=== PATIENT | female | born 1990 | race African-American/Black ===

== ENCOUNTER 2022-04-05 21:15 | Emergency (ER) | payer SELFPAY ==
[2022-04-05] MEDS ORDERED: Ketorolac 60 MG/2 ML SDV IM ONE (21:52)
[2022-04-05 23:07] LABS: BLOOD UREA NITROGEN,BUN 14 mg/dL (7.0-18.0); CARBON DIOXIDE,CO2 26.5 mmol/L (21.0-32.0); CHLORIDE,CL 99 mmol/L (98-107); GLUCOSE RANDOM 296 mg/dL (74-106); LIPASE 70 U/L (73-393); POTASSIUM,K 3.9 mmol/L (3.5-5.1); SODIUM,NA 134 mmol/L (136-145)
[2022-04-05] MEDS ORDERED: traMADol 50 MG Tab PO ONE (23:57)
== END 2022-04-06 00:08 | disposition home or self-care (01) ==
LOC: MW.ED 21:15
DX: N92.1 Excessive and frequent menstruation with irregular cycle (principal); I10 Essential (primary) hypertension; F17.210 Nicotine dependence, cigarettes, uncomplicated
CPT/HCPCS: 36415; 80053; 81001; 81025; 83690; 85025; 96372; 99283; 99284; A9270-GY; J1885

== ENCOUNTER 2023-01-04 21:28 | Emergency (ER) | payer OTHER ==
[2023-01-04] MEDS ORDERED: Acetaminophen 500 MG Tab PO ONE (22:53)
== END 2023-01-05 00:07 | disposition home or self-care (01) ==
LOC: MW.ED 21:28
DX: S06.0X0A Concussion without loss of consciousness, initial encounter (principal); S16.1XXA Strain of muscle, fascia and tendon at neck level, initial encounter; V49.40XA Driver injured in collision with unspecified motor vehicles in traffic accident, initial encounter; Y92.410 Unspecified street and highway as the place of occurrence of the external cause
CPT/HCPCS: 99283; A9270

== ENCOUNTER 2023-01-09 15:38 | Emergency (ER) | payer OTHER ==
[2023-01-09] MEDS ORDERED: Ibuprofen 400 MG Tab PO ONE (17:04)
[2023-01-09] MEDS ORDERED: Acetaminophen 325 MG Tab PO ONE (17:04)
[2023-01-09] MEDS ORDERED: Lidocaine 5% 700 MG Patch TOP ONE (17:05)
== END 2023-01-09 18:07 | disposition home or self-care (01) ==
LOC: MW.ED 15:38
DX: M25.519 Pain in unspecified shoulder (principal); R51.9 Headache, unspecified; M54.2 Cervicalgia
CPT/HCPCS: 99283; A9270

== ENCOUNTER 2023-04-11 02:08 | Emergency (ER) | payer OTHER ==
[2023-04-11] MEDS ORDERED: Sodium Chloride 0.9% 1,000 ML IV ONE (02:10)
[2023-04-11] MEDS ORDERED: Ondansetron 4 MG/2 ML SDV IVPUSH ONE (02:10)
[2023-04-11 02:31] LABS: BASOPHILS PERCENT AUTO 0.2 % (0.0-1.5); EOSINOPHILS ABSOLUTE AUTO 0.4 K/uL (0.0-0.7); EOSINOPHILS PERCENT AUTO 4.6 % (0.0-7.0); HEMATOCRIT 37.4 % (36.0-46.0); HEMOGLOBIN 12.5 g/dL (12.0-16.0); LYMPHOCYTES ABSOLUTE AUTO 3.3 K/uL (0.6-2.4); LYMPHOCYTES PERCENT AUTO 38.9 % (16.0-40.0); MEAN CORPUSCULAR HEMOGLOBIN 26.8 pg (27.0-32.0); MEAN CORPUSCULAR HGB CONC 33.4 g/dL (31.0-37.0); MEAN CORPUSCULAR VOLUME 80.1 fL (80.0-98.0); MONOCYTES ABSOLUTE AUTO 0.6 K/uL (0.0-0.8); MONOCYTES PERCENT AUTO 6.5 % (0.0-15.0); NEUTROPHILS ABSOLUTE AUTO 4.2 K/uL (1.4-5.7); NEUTROPHILS PERCENT AUTO 49.8 % (48.0-80.0); NRBC ABSOLUTE 0 K/uL; PLATELET COUNT,PLT 332 K/uL (150-400); RED BLOOD CELL COUNT 4.67 M/uL (4.30-5.90); WHITE BLOOD CELL COUNT,WBC 8.43 K/uL (4.0-11.0)
[2023-04-11 02:36] LABS: BILIRUBIN,URINE NEGATIVE (NEGATIVE); COLOR,URINE YELLOW; GLUCOSE,URINE 500 mg/dL (NEGATIVE); KETONES,URINE TRACE mg/dL (NEGATIVE); LEUKOCYTE ESTERASE,URINE TRACE (NEGATIVE); NITRITE,URINE NEGATIVE (NEGATIVE); OCCULT BLOOD,URINE LARGE (NEGATIVE); PH,URINE 5.5 (5.0-8.0); PROTEIN,URINE NEGATIVE (NEGATIVE); UROBILINOGEN,URINE 0.2 EU/dL (<2.0)
[2023-04-11 02:47] LABS: APPEARANCE,URINE SLT CLOUDY
[2023-04-11 02:48] LABS: BACTERIA,URINE FEW (NEGATIVE); EPITHELIAL CELLS,URINE FEW (NONE-FEW); RBC,URINE 20-25 (0-2/HPF)
[2023-04-11 02:55] LABS: A/G RATIO 0.9 (0.9-1.6); ALBUMIN 3.6 g/dL (3.4-5.0); BILIRUBIN TOTAL 0.3 mg/dL (0.2-1.0); CALCIUM 9.1 mg/dL (8.5-10.1); CARBON DIOXIDE,CO2 26.3 mmol/L (21.0-32.0); CREATININE 0.7 mg/dL (0.6-1.0); EST CRCL DRUG DOSING (CG) 113.24 mL/min; MAGNESIUM 1.7 mg/dL (1.8-2.4); PROTEIN TOTAL,TP 7.5 g/dL (6.4-8.2)
[2023-04-11 03:17] LABS: CANDIDA DNA PROBE NEGATIVE (NEGATIVE); GARDNERELLA DNA PROBE POSITIVE (NEGATIVE); TRICHOMONAS DNA PROBE NEGATIVE (NEGATIVE)
[2023-04-11 04:06] LABS: C. TRACHOMATIS BY PCR NOT DETECTED; N. GONORRHOEAE BY PCR DETECTED
[2023-04-11] MEDS ORDERED: cefTRIAXone 500 MG in Lidocaine 1% 1 ML IM ONE (04:10)
[2023-04-11] MEDS ORDERED: Ibuprofen 600 MG Tab PO ONE (04:19)
== END 2023-04-11 04:59 | disposition home or self-care (01) ==
LOC: MW.ED 02:08
DX: A54.9 Gonococcal infection, unspecified (principal); N76.0 Acute vaginitis; B96.89 Other specified bacterial agents as the cause of diseases classified elsewhere
CPT/HCPCS: 36415; 80053; 81001; 83690; 83735; 84703; 85025; 87480; 87491; 87510; 87591; 87660; 96361; 96372; 96374; 99284; A9270; J0696; J2405; J7030; J3490

== ENCOUNTER 2024-10-22 13:12 | Emergency (ER) | payer SELFPAY ==
[2024-10-22 14:17] LABS: BILIRUBIN,URINE NEGATIVE (NEGATIVE); COLOR,URINE YELLOW; GLUCOSE,URINE NEGATIVE (NEGATIVE); KETONES,URINE NEGATIVE (NEGATIVE); LEUKOCYTE ESTERASE,URINE TRACE (NEGATIVE); NITRITE,URINE NEGATIVE (NEGATIVE); OCCULT BLOOD,URINE NEGATIVE (NEGATIVE); PROTEIN,URINE NEGATIVE (NEGATIVE); UROBILINOGEN,URINE 0.2 EU/dL (<2.0)
[2024-10-22 14:18] LABS: APPEARANCE,URINE HAZY
[2024-10-22] MEDS: Acetaminophen 500 MG Tab PO ONE (14:31)
[2024-10-22 14:33] LABS: EPITHELIAL CELLS,URINE MODERATE (NONE-FEW); RBC,URINE 0-2 (0-2/HPF)
[2024-10-22 14:34] LABS: BACTERIA,URINE 1+ (NEGATIVE)
== END 2024-10-22 14:42 | disposition home or self-care (01) ==
LOC: MW.ED 13:12
DX: J10.1 Influenza due to other identified influenza virus with other respiratory manifestations (principal); K04.7 Periapical abscess without sinus; N39.0 Urinary tract infection, site not specified; Z75.8 Other problems related to medical facilities and other health care
CPT/HCPCS: 81001; 87086; 87428; 99284; A9270